=== PATIENT | female | born 1950 | race Caucasian/White ===

== ENCOUNTER 2021-12-30 03:15 | Inpatient (IN) ==
[2021-12-30 03:39] LABS: ABS Basophils 0.1 10^3/ul (0-0.2); ABS Eosinophils 0.1 10^3/ul (0-0.6); ABS Lymphocytes 2.5 10^3/ul (1.0-4.8); ABS Monocytes 0.4 10^3/ul (0-0.8); ABS Neutrophils 5.2 10^3/ul (1.5-7.7); Eosinophil % 0.9 %; Hematocrit 44 % (35-47); Hemoglobin 14.7 g/dL (12.0-16.0); Lymphocyte % 30.1 %; Mean Corpuscular HGB Conc 34 g/dL (31-36); Mean Corpuscular Hemoglobin 29 pg (27-31); Mean Corpuscular Volume 87 fL (80-97); Mean Platelet Volume 8.5 fL (7.4-10.4); Nucleated Red Blood Cells % 0.1; Platelet Count 212 10^3/uL (150-450); Red Blood Count 5.06 10^6 /uL (3.70-4.87); Red Cell Distribution Width 14 % (10-15); White Blood Count 8.2 10^3/uL (3.5-10.8)
[2021-12-30 04:16] LABS: Albumin 4.1 g/dL (3.2-5.2); Calcium 8.8 mg/dL (8.6-10.3); Potassium 3.8 mmol/L (3.5-5.0); Total Bilirubin 0.5 mg/dL (0.2-1.0)
[2021-12-30 04:22] LABS: Albumin/Globulin Ratio 1.6 (1-3); Globulin 2.6 g/dL (2-4); Total Protein 6.7 g/dL (6.4-8.9); eGFR CKD-EPI 83.5 (>60)
[2021-12-30 05:02] LABS: High Sensitivity Troponin 1 Hr 103 pg/mL (<15)
[2021-12-30 05:06] LABS: INR 1.07 (0.86-1.15)
[2021-12-30] MEDS ORDERED: Heparin DRIP 25,000 UNITS BAG 25,000 UNITS/500 ML BAG IV SCH ×2 (05:15→06:15)
[2021-12-30] MEDS ORDERED: Heparin 5000 UNITS/ML 1 mL VIAL IV SCH ×2 (06:00→07:00)
[2021-12-30] MEDS ORDERED: Metoprolol Tartrate 5 mg VIAL 5 ml VIAL (1 mg/ml) IV ONE (06:08)
[2021-12-30] MEDS ORDERED: Albuterol 2.5mg/3 ml (0.083%) NEB.SOLN INH PRN (06:13)
[2021-12-30] MEDS: Nitro 2% OINT (Nitroglycerin) 1 INCH/PAK TOPICAL SCH ×2 (06:45→12:25)
[2021-12-30] MEDS ORDERED: hydrALAZINE 20 mg/ml 1 ML Vial IV IV SLOW PU PRN ×2 (08:12→13:54)
[2021-12-30] MEDS: Aspirin EC 81 mg TAB.EC (enteric coated) PO SCH (08:14)
[2021-12-30] MEDS: Heparin 5000 UNITS/ML 1 mL VIAL SUBCUT SCH (21:22)
[2021-12-31] MEDS: Heparin 5000 UNITS/ML 1 mL VIAL SUBCUT SCH (06:05)
[2021-12-31] MEDS: Nitro 2% OINT (Nitroglycerin) 1 INCH/PAK TOPICAL SCH (06:05)
[2021-12-31 06:44] LABS: INR 1.06 (0.86-1.15)
[2021-12-31 06:54] LABS: ABS Basophils 0.1 10^3/ul (0-0.2); ABS Eosinophils 0.1 10^3/ul (0-0.6); ABS Monocytes 0.3 10^3/ul (0-0.8); ABS Neutrophils 4.7 10^3/ul (1.5-7.7); Hematocrit 43 % (35-47); Hemoglobin 14.6 g/dL (12.0-16.0); Lymphocyte % 27.7 %; Mean Corpuscular HGB Conc 34 g/dL (31-36); Mean Corpuscular Hemoglobin 29 pg (27-31); Mean Corpuscular Volume 87 fL (80-97); Mean Platelet Volume 8.7 fL (7.4-10.4); Platelet Count 208 10^3/uL (150-450); Red Cell Distribution Width 14 % (10-15); White Blood Count 7.1 10^3/uL (3.5-10.8)
[2021-12-31 07:08] LABS: Calcium 9.1 mg/dL (8.6-10.3); HDL Cholesterol 55.5 mg/dL; Potassium 4.3 mmol/L (3.5-5.0); eGFR CKD-EPI 94.9 (>60)
[2021-12-31] MEDS: Aspirin EC 81 mg TAB.EC (enteric coated) PO SCH (07:52)
[2021-12-31] MEDS ORDERED: Aminophylline 25 MG/ML VIAL ONE (09:07)
[2021-12-31] MEDS ORDERED: Regadenoson 0.4 MG/5 ML SYRINGE ONE (09:07)
[2021-12-31] MEDS ORDERED: Ondansetron 4 mg VIAL 2 MG/ML 2 ml VIAL ONE ×3 (09:20→13:48)
[2021-12-31] MEDS ORDERED: Ondansetron ODT 4 mg TAB 4 MG TAB ONE (09:20)
[2021-12-31] MEDS ORDERED: Heparin 1,000 UNIT/ML 10 ml (10,000 UNITS) CATHLAB/DIALYSIS ONE (13:04)
[2021-12-31] MEDS ORDERED: Midazolam 5 mg/5 ml VIAL 1 mg/ml 5 ml VIAL (5 mg) ONE (13:04)
[2021-12-31] MEDS ORDERED: fentaNYL 100 mcg/2 ml 50 MCG/ML VIAL ONE (13:04)
[2021-12-31] MEDS ORDERED: Heparin 2 UNITS/ML 1000 mls 2,000 ML IV ONE (13:04)
[2021-12-31] MEDS ORDERED: nitroGLYCERIN DRIP 25,000 MCG/250 ML BTL ONE ×2 (13:04→16:09)
[2021-12-31] MEDS ORDERED: Iohexol 350 (CONTRAST) 200 ML MDV IV ONE (13:05)
[2021-12-31] MEDS ORDERED: niCARdipine 0.1MG/ML IVPREMIX 20 MG/200 ML BAG IV ONE (13:05)
[2021-12-31] MEDS ORDERED: Lidocaine 1% MPF 5 ML VIAL ONE (13:32)
[2021-12-31] MEDS ORDERED: Prochlorperazine 5 mg/ml 2 ml VIAL (10 mg) ONE (13:54)
[2021-12-31] MEDS ORDERED: Heparin 5000 UNITS/ML 1 mL VIAL IV SCH ×2 (16:00→17:00)
[2021-12-31] MEDS ORDERED: Heparin DRIP 25,000 UNITS BAG 25,000 UNITS/500 ML BAG IV SCH ×2 (16:00→16:15)
[2021-12-31] MEDS ORDERED: Heparin DRIP 25,000 UNITS BAG 25,000 UNITS/500 ML BAG ONE (16:09)
[2021-12-31] MEDS ORDERED: nitroGLYCERIN DRIP 25,000 MCG/250 ML BTL IV SCH (17:00)
[2021-12-31 18:53] VITALS: BP 135/86
== END 2021-12-31 18:47 | disposition short-term general hospital (02) | DRG 281 ==
LOC: ED 03:15 → SUATTDRO 05:58 → EDHOLD 05:58 → MEDTELE 08:46
PROVIDERS: ADMIT Internal Medicine; ATTEND Internal Medicine